=== PATIENT | male | born 1995 | race Caucasian/White ===

== ENCOUNTER → 2020-10-25 | Outpatient (REF) | payer OTHER | LOC: M LAB REF 19:36 | PROVIDERS: ATTEND Dermatology | DX: L72.0 Epidermal cyst (principal) ==

== ENCOUNTER → 2021-01-12 | Outpatient (CLI) | payer BC, OTHER ==
--- NOTE | 2021-01-12 15:07 | REP ---
INDICATION: PAIN. COMPARISON: 10/11/2006. TECHNIQUE: Three AP and lateral views cervical spine. FINDINGS: There is no compression fracture or malalignment. There is no prevertebral soft tissue swelling. The disc spaces are well preserved. There is a small ligamentous calcification anteriorly at the C5-6 level. IMPRESSION: Tiny ligamentous calcification anteriorly at the C5-6 level. Otherwise unremarkable exam. <Electronically signed by Ki Calderon > 01/12/21 3089
== END ==
LOC: M SOG 14:43
PROVIDERS: ATTEND Orthopaedic Surgery Sports Medicine
DX: M54.12 Radiculopathy, cervical region (principal)

== ENCOUNTER → 2021-02-28 | Outpatient (CLI) | payer OTHER ==
[~2021-02-28] MED LIST: ISOVUE-300 61% 50ML VIAL As Ordered ONE; PROHANCE 279.3MG/ML 5ML VIAL As Ordered ONE
--- NOTE | 2021-02-28 10:28 | REP ---
INDICATION: INSTABILITY RT SHOULDER. COMPARISON: Radiographs 10/14/2020. TECHNIQUE: Coronal oblique T1, T2 fat sat, sagittal oblique T2 fat sat, axial T2 fat sat, gradient echo. Post arthrogram T1 fat sat and T2 fat sat in multiple planes. FINDINGS: Rotator cuff: There is mild ill-defined signal in the infraspinatus tendon suggesting tendinitis or tendon strain. Otherwise no rotator cuff tendon tear is seen. Acromioclavicular joint: There are mild hypertrophic degenerative changes of the acromioclavicular joint. Acromion: Type 2 Biceps Tendon: In bicipital groove, no tenosynovitis. Hill Sach's deformity: None. Deltoid muscle: No abnormal signal. Biceps labral complex: Intact. Labrum: No tear. Cartilage: No defects. Bone marrow: No abnormal signal. Joint fluid: No effusion. IMPRESSION: Ill-defined signal in the infraspinatus tendon suggesting tendinitis or tendon strain. Otherwise no rotator cuff tendon tear or labral tear is seen. There are mild hypertrophic degenerative changes of the acromioclavicular joint. <Electronically signed by Ki Calderon > 02/28/21 1024
--- NOTE | 2021-02-28 18:43 | REP ---
INDICATION: INSTABILITY RT SHOULDER COMPARISON: None. TECHNIQUE: The procedure was performed under the direct supervision of Dr. Calderon. The benefits and risks including but not limited to pain, infection, bleeding and anaphylaxis were explained to the patient and informed consent was obtained. The right glenohumeral joint space was localized using fluoroscopic guidance. The skin was prepped and draped in a sterile fashion. 1% lidocaine was used as a local anesthetic. Using fluoroscopic guidance a 22 gauge spinal needle was inserted and advanced into the joint. 0.5 ml of Isovue-300 was injected to verify placement. 11 ml of a solution containing 20 ml of sterile saline and 0.15 ml of ProHance was injected into the joint. The needle was removed and the patient was taken to MRI for postprocedural imaging. The patient tolerated the procedure well and there were no immediate complications. Less than 6 seconds of fluoro time was utilized for this procedure. FINDINGS: None IMPRESSION: Fluoro guidance for right shoulder MRI arthrogram injection. <Electronically signed by Fausto Meehan > 02/28/21 [id number] <Electronically signed by Ki Calderon > 02/28/21 0902
== END ==
LOC: M RADPRO 06:13
PROVIDERS: ATTEND Orthopaedic Surgery Sports Medicine
DX: R93.7 Abnormal findings on diagnostic imaging of other parts of musculoskeletal system (principal); M25.311 Other instability, right shoulder
CPT/HCPCS: 23350; 73223; 77002; A9576; Q9967

== ENCOUNTER → 2021-04-21 | Outpatient (CLI) | payer OTHER ==
--- NOTE | 2021-04-21 10:23 | REP ---
INDICATION: CERVICAL RADICULOPATHY. COMPARISON: Comparison radiographs January 12, 2021. TECHNIQUE: Five views of the cervical spine are provided. FINDINGS: Lateral view shows straightening of the normal cervical lordosis. There is mild discogenic spurring anteriorly at C5-6. Disc spaces are maintained. Alignment is normal. Prevertebral soft tissues are unremarkable. AP and bilateral oblique views show normally aligned facets and intact neural foramina bilaterally at each level. Open mouth odontoid view is unremarkable. IMPRESSION: Straightening and minimal degenerative disc spurring at C5-6. Otherwise negative. No significant change from January 12, 2021. <Electronically signed by David Avila > 04/21/21 1023
== END ==
LOC: M SOG 09:56
PROVIDERS: ATTEND Orthopaedic Surgery Sports Medicine
DX: M54.12 Radiculopathy, cervical region (principal)

== ENCOUNTER → 2021-05-02 | Outpatient (CLI) | payer OTHER ==
--- NOTE | 2021-05-02 14:26 | REP ---
INDICATION: RADICULOPATHY CERVICAL REGION. COMPARISON: Comparison cervical spine radiographs April 21, 2021. TECHNIQUE: Sagittal and axial T1 and T2-weighted scans are acquired in the usual fashion with and without fat saturation. Sequences include spin echo, turbo spin-echo, and STIR imaging sequences. FINDINGS: There is straightening of the normal cervical lordosis. Cervical vertebral body heights are preserved. Alignment is otherwise normal. There is no bony destructive lesion. Craniocervical junction is unremarkable. Cervical cord is normal in course, caliber, and signal intensity on T1 and T2 weighted scans. No extra spinal abnormality is appreciated. Axial and sagittal images taken at the C2-3 level show no abnormality. At C3-4, there is minimal central disc bulging without cord compression. No foraminal narrowing or spinal stenosis is seen. At C4-C5, there is a very small right paracentral focal disc protrusion. This indents the ventral margin of the thecal sac but does not appear to contact the cord. No foraminal narrowing is seen. At C5-C6, there is mild disc space narrowing anteriorly. There is a small central focal disc protrusion with annular tear at C5-6. No cord compression. No neural foraminal narrowing is appreciated. At C6-7, there is also a is fairly broad-based central focal disc protrusion indenting the ventral margin of the thecal sac but not compressing the cord. There is evidence of an annulus tear at the C6-7 disc level as well. No foraminal narrowing or overall spinal stenosis is seen. The C7-T1 level is unremarkable. IMPRESSION: Quite small focal central disc protrusions at C6-7, C5-6, and C4-5. Otherwise negative. <Electronically signed by David Avila > 05/02/21 2052
== END ==
LOC: M PLAIMG 12:56
PROVIDERS: ATTEND Orthopaedic Surgery Sports Medicine
DX: M54.12 Radiculopathy, cervical region (principal); M50.220 Other cervical disc displacement, mid-cervical region, unspecified level; M50.221 Other cervical disc displacement at C4-C5 level; M50.322 Other cervical disc degeneration at C5-C6 level

== ENCOUNTER → 2021-05-22 | Outpatient (CLI) | payer OTHER ==
[~2021-05-22] MED LIST changes: +LIDOCAINE 1% MDV 20ML VIAL As Ordered ONE; -PROHANCE 279.3MG/ML 5ML VIAL As Ordered ONE; +methylPREDNISolone SUSP 40MG/ML 1ML VIAL (DEPO MEDROL) As Ordered ONE
--- NOTE | 2021-05-22 16:38 | REP ---
INDICATION: IMPINGEMENT SYNDROME RT SHOULDER. COMPARISON: None TECHNIQUE: The procedure was performed by Flower Meier [facility], under the direct supervision of Dr. Calderon. The benefits and risks of the procedure were explained to the patient, and an informed consent was obtained. Directly prior to the start of the procedure, a formal time-out was completed in the procedure room. The right glenohumeral joint space was localized using fluoroscopic guidance. The skin was prepped and draped in a sterile fashion. Approximately 5 mL of 1% Lidocaine 10 mg/ml was used as a local anesthetic. Using fluoroscopic guidance, a #22 gauge spinal needle was inserted and advanced into the right glenohumeral joint space. Approximately 1 mL of Isovue 300 was injected to verify placement. Six mL of a solution containing 4 mL 1% lidocaine 10 mg/ml and 2 mL Depo-Medrol 40 milligrams/milliliter was injected into the joint space. The needle was removed and hemostasis was achieved. FINDINGS: The patient tolerated the procedure well and there were no immediate complications. IMPRESSION: 1. Fluoroscopically guided right shoulder intra-articular pain injection. 0.1 minutes of fluoroscopy time was utilized for this procedure. Some fluoroscopic images are performed with last image hold technology. These images require no additional radiation. <Electronically signed by Flower Meier > 05/22/21 1244 <Electronically signed by Ki Calderon > 05/22/21 [id number]
== END ==
LOC: M RADPRO 09:56
PROVIDERS: ATTEND Orthopaedic Surgery Sports Medicine
DX: M75.41 Impingement syndrome of right shoulder (principal)
CPT/HCPCS: 20610; 77002; J1030; Q9967

== ENCOUNTER → 2021-10-26 | Outpatient (CLI) | payer OTHER | LOC: M PAIN 09:00 | PROVIDERS: ATTEND Anesthesiology | DX: M25.511 Pain in right shoulder (principal); G89.29 Other chronic pain; M79.2 Neuralgia and neuritis, unspecified; Z91.040 Latex allergy status; E66.01 Morbid (severe) obesity due to excess calories; Z68.42 Body mass index [BMI] 45.0-49.9, adult; Z79.899 Other long term (current) drug therapy ==

== ENCOUNTER → 2021-12-12 | Outpatient (CLI) | payer OTHER | LOC: M PAIN 11:30 | PROVIDERS: ATTEND Nurse Practitioner Family | DX: M25.511 Pain in right shoulder (principal); G89.29 Other chronic pain; M79.2 Neuralgia and neuritis, unspecified; F17.290 Nicotine dependence, other tobacco product, uncomplicated; Z91.040 Latex allergy status; E66.01 Morbid (severe) obesity due to excess calories; Z68.41 Body mass index [BMI] 40.0-44.9, adult; Z79.899 Other long term (current) drug therapy ==

== ENCOUNTER → 2022-03-14 | Outpatient (CLI) | payer OTHER | LOC: M PAIN 09:30 | PROVIDERS: ATTEND Anesthesiology | DX: M25.511 Pain in right shoulder (principal); G89.29 Other chronic pain; M79.2 Neuralgia and neuritis, unspecified; F17.290 Nicotine dependence, other tobacco product, uncomplicated; Z91.040 Latex allergy status; E66.01 Morbid (severe) obesity due to excess calories; Z68.41 Body mass index [BMI] 40.0-44.9, adult; Z79.899 Other long term (current) drug therapy ==

== ENCOUNTER → 2024-05-25 | Outpatient (REF) | LOC: M EMP 10:54 | PROVIDERS: ATTEND Family Medicine | DX: Z20.822 Contact with and (suspected) exposure to COVID-19 (principal) ==